=== PATIENT | male | born 1985 | race Caucasian/White ===

== ENCOUNTER 2021-04-15 12:16 | Emergency (ER) | payer OTHER, SELFPAY ==
[2021-04-15 12:26] VITALS: BP 130/66; PULSE 84; RESP 18; TEMP 36.4; O2SAT 99
--- NOTE | 2021-04-15 12:26 | ED.MALEGU ---
HPI - Male Genitourinary General Chief complaint: Urogenital-Male Stated complaint: POS UTI Time Seen by Provider: 04/15/21 12:26 Source: patient and RN notes reviewed Mode of arrival: ambulatory Limitations: no limitations History of Present Illness HPI Narrative: 35-year-old male presents to the [facility] with complaints of 5 days of urinary pain and burning. Denies chest pain or abdominal pain. No nausea vomiting or diarrhea. Denies any chance of an STD. States when he was in college he had a UTI. Related Data Allergies Allergy/AdvReac Type Severity Reaction Status Date / Time No Known Allergies Allergy Unverified 06/16/16 10:43 Review of Systems Review of Systems: All systems reviewed & are unremarkable except as noted in HPI and below Constitutional: Constitutional: Reports no additional constitutional complaints Eyes: Eyes: Reports no additional eye complaints ENT: Reports system reviewed and no additional complaints, except as documented Cardiovascular: Cardiovascular: Reports no additional cardiovascular complaints Respiratory: Respiratory: Reports no additional respiratory complaints and Denies dyspnea on exertion Gastrointestinal: Gastrointestinal: Reports no additional gastrointestinal complaints Genitourinary: Genitourinary: Reports as per HPI, Reports dysuria, Denies flank pain, Denies testicular mass, Denies testicular pain and Denies urinary frequency Musculoskeletal: Musculoskeletal: Reports no additional musculoskeletal complaints and Denies back pain Integumentary/Breasts: Skin/Breast: Reports system reviewed and no additional complaints, except as docu Neurologic: Reports system reviewed and no additional complaints, except as documented Psychiatric: Psychiatric: Reports no additional psychiatric complaints Allergic/Immunologic: Allergic/Immunologic: Reports no additional allergic/immunologic complaints PMFSH Comments At the time of my signature, I reviewed and agree with the nursing past medical, surgical, social, and family history. There is no relevant family history pertinent to the patient complaint. Exam Const: General: cooperative, healthy appearing, no acute distress, well developed and alert Nutritional Appearance: average body habitus Orientation/consciousness: patient oriented x3 Limitations: no limitations HENMT: Head: normal to inspection Eyes: General: appearance normal, both eyes and all related structures Neck: Neck: normal visual inspection, full ROM, no lymphadenopathy, no meningeal signs and trachea midline Chest: Chest palpation & inspection: normal inspection of the chest Resp: Effort & Inspection: normal respiratory effort and able to speak in complete sentences Auscultation: clear to auscultation bilaterally Cardio: Rate: regular rate Rhythm: regular rhythm GI: Inspection: normal to inspection GI Palp: No abdominal tenderness Auscultation: normal bowel sounds Rectal Exam: deferred : General: Yes no CVA tenderness and Yes deferred Back/Spine/Pelvis: Back: no CVA tenderness Skin: General skin exam: normal color and no rashes or lesions noted Neuro: General: patient oriented x3 and gait normal Cognition (Neuro): normal cognition Gait exam (Neuro): Normal gait present Extrem: General: normal to inspection, full ROM and capillary refill normal Psych: Appearance: grossly normal and well kempt Mental Status: mental status grossly normal Speech and movement: Normal speech and movement present Affect: normal affect Attitude: cooperative Thought process: Normal thought process present Course Course Emergency Course: Discharge instructions reviewed with patient, as well as provided in writing per nursing staff. The instructions also include specific and strict return/GO TO THE ER as well as f/u information. All questions have been answered, and the patient deny any further questions with discharge and discharge plan. Vital Signs Vital signs: Kay
== END 2021-04-15 12:50 | disposition home or self-care (01) ==
PROVIDERS: Emergency Provider Nurse Practitioner
DX: N30.00 Acute cystitis without hematuria (principal)
CPT/HCPCS: 81003; 87077; 87086; 87088; 87186; 99203; G0463

== ENCOUNTER 2022-03-08 22:36 | Emergency (ER) | payer BC, SELFPAY ==
--- NOTE | ~2022-03-08 | CT_ITS ---
EXAMINATION: CT abdomen pelvis wo con DATE: 03/09/2022 00:25 INDICATION: Abdominal pain and dysuria TECHNIQUE: Computed tomography (CT) of the abdomen and pelvis was performed without intravenous contr ast. The dose-length product (DLP) was 473.87 mGy-cm. Automated exposure control and iterative recons truction technique were employed. COMPARISON: None FINDINGS: The lung bases are clear. The heart size is normal. The liver, spleen, pancreas, and adrena l glands are normal. The gallbladder is contracted but appears normal. The left kidney is absent or s everely atrophic. There is a 2 mm nonobstructing stone of the right kidney. There is an 8 mm hemorrha gic cyst of the right kidney lower pole. The appendix is normal. No pathologically enlarged abdominal or pelvic lymph nodes are identified. There is no free intraperitoneal gas or evidence of bowel obst ruction. There is a 2.3 x 1.7 cm soft tissue density of the right pelvis of unclear etiology given th e absence of intravenous contrast. Finding could relate to the seminal vesicles or possibly reflect a lymphangioma, peritoneal inclusion cyst, or seroma. IMPRESSION: 1. No CT correlate for the patient's symptoms. Reviewed, dictated and finalized at location A.
[2022-03-08 22:38] VITALS: BP 131/68; PULSE 77; RESP 18; TEMP 36.2; O2SAT 97
--- NOTE | 2022-03-08 23:36 | ED.MALEGU ---
HPI - Male Genitourinary General Chief complaint: Urogenital-Male Stated complaint: abdominal pain Time Seen by Provider: 03/08/22 23:21 Source: patient Mode of arrival: ambulatory Limitations: no limitations History of Present Illness HPI Narrative: This is a 36 year old male that presents to the ER for dysuria noted today. Patient is about 2 weeks s/p vasectomy with Dr. Mejia. Reports today he started to note dysuria and urethral pain. He was started on Ciprofloxacin by urology. Reports he took Ibuprofen with little relief. His pain worsened which prompted him to be seen. Denies fever, vomiting, or testicular pain or swelling. Related Data Allergies Allergy/AdvReac Type Severity Reaction Status Date / Time No Known Allergies Allergy Unverified 03/08/22 22:42 Review of Systems Review of Systems: CONSTITUTIONAL: Denies fever GASTROINTESTINAL: Denies abdominal pain, nausea, vomiting GENITOURINARY: Reports dysuria. Denies hematuria. All systems reviewed & are unremarkable except as noted in HPI and below PMFSH Past Medical History Medical History (Updated 03/09/22 @ 02:39 by Milly Arroyo PA-C) No active medical problems Social History Social History (Updated 03/08/22 @ 23:41 by Milly Arroyo PA-C) Substance use: never Exam Narrative: GENERAL: Well-appearing, well-nourished, and in no acute distress. HEAD: Normocephalic, atraumatic. EYES: EOMI. CHEST: Clear to auscultation. No respiratory distress. No wheezes rales or rhonchi HEART: Regular rate and rhythm. No murmur heard. Normal peripheral pulses. ABDOMEN: Soft, nontender, nondistended, normal active bowel sounds. No CVA tenderness EXTREMITIES: Normal range of motion. No edema. SKIN: Warm, dry, no rash. NEURO: No focal deficits. Alert and oriented x3. PSYCH: Normal mood and affect Course Vital Signs Vital signs: Vital Signs Temperature 97.2 F L 03/08/22 22:38 Pulse Rate 77 03/08/22 22:38 Respiratory Rate 18 03/08/22 22:38 Blood Pressure 131/68 03/08/22 22:38 Pulse Oximetry 97 03/08/22 22:38 Oxygen Delivery Room Air 03/08/22 22:38 Temperature 97.2 F L 03/08/22 22:38 Pulse Rate 51 L 03/09/22 02:47 Respiratory Rate 18 03/09/22 02:47 Blood Pressure 113/81 03/09/22 02:47 Pulse Oximetry 100 03/09/22 02:47 Oxygen Delivery Room Air 03/08/22 22:38 MDM - Male Genitourinary MDM Narrative Medical decision making narrative: Patient presents to the emergency department for dysuria noted after vasectomy couple of weeks ago. Patient is afebrile and nontoxic-appearing. Vitals are stable. CBC with mild leukocytosis to 10.4. Metabolic panel with normal-appearing kidney function. UA is nitrate positive with 3-5 red blood cells. This will be sent for a culture. He reports no concern for STDs. CT scan of the abdomen and pelvis shows equivocal cystitis. No acute intra-abdominal or intrapelvic abnormality. Solitary right kidney with a punctate nonobstructing stone. Normal appendix. Patient was updated on case findings. He is stable and felt appropriate for further outpatient evaluation. He is to follow-up with his urologist. He is to continue antibiotics started by his urologist. He was given warnings to return to the ER Lab Data Attestation: I reviewed the patient's lab results. Result diagrams: 03/08/22 23:33 03/08/22 23:33 Labs: Lab Results 03/08/22 03/08/22 03/08/22 Range/Units 23:33 23:33 23:39 WBC 10.4 H (4.5-10.0) K/mm3 RBC 4.89 (4.6-6.20) M/mm3 Hgb 14.6 (14.0-18.0) g/dL Hct 42.8 (42.0-52.0) % MCV 87.5 (80-100) fl MCH 29.9 (26-34) pg MCHC 34.1 (32-36) g/dl RDW 12.0 (11.5-14.5) % Plt Count 239 (150-375) k/mm3 MPV 9.4 (7.4-10.4) fl Immature Gran % (Auto) 0.2 (0-0.5) % Neut % (Auto) 67.4 (45.5-73.1) % Lymph % (Auto) 19.6 (18.3-44.2) % Riley % (Auto) 11.3 H (2.6-8.5) % Eos % (Auto) 1.0 (0-
[2022-03-08 23:39] LABS: Basophils Absolute Auto 0.1 K/mm3 (0.0-0.1); Basophils Percent Auto 0.5 % (0.2-1.2); Eosinophils Absolute Auto 0.1 K/mm3 (0-0.3); Hematocrit 42.8 % (42.0-52.0); Hemoglobin 14.6 g/dL (14.0-18.0); Immature Granulocyte Absolute 0.02 K/mm3 (0.00-0.031); Immature Granulocyte Percent A 0.2 % (0-0.5); Lymphocytes Absolute Auto 2.04 K/mm3 (0.9-3.2); Lymphocytes Percent Auto 19.6 % (18.3-44.2); Mean Corpuscular HGB Conc 34.1 g/dl (32-36); Mean Corpuscular Hemoglobin 29.9 pg (26-34); Mean Corpuscular Volume 87.5 fl (80-100); Mean Platelet Volume 9.4 fl (7.4-10.4); Monocytes Absolute Auto 1.2 K/mm3 (0.1-0.6); Monocytes Percent Auto 11.3 % (2.6-8.5); Neutrophils Percent Auto 67.4 % (45.5-73.1); Platelet Count Result 239 k/mm3 (150-375); Red Blood Count 4.89 M/mm3 (4.6-6.20); White Blood Count 10.4 K/mm3 (4.5-10.0)
[2022-03-08 23:48] LABS: Appearance Urine Clear (Clear); Bilirubin Urine 1+ (Negative); Color Urine Yellow (Yellow); Glucose Urine UA Trace mg/dL (Negative); Ketones Urine Trace mg/dL (Negative); Leukocyte Esterase Ur Negative LEU/UL (Negative); Nitrate Urine Positive (Negative); Protein Urine Negative (Negative); Specific Grav Ur 1.025 (1.001-1.035)
[2022-03-08 23:50] LABS: Alanine Aminotransferase 23 U/L (6-50); Albumin Level 4.7 g/dL (3.5-5.1); Alkaline Phosphatase 74 U/L (38-126); Anion Gap 8 mmol/L (8-16); Aspartate Amino Transferase 26 U/L (17-59); Bilirubin,Total 0.4 mg/dL (0.2-1.3); Blood Urea Nitrogen 20 mg/dL (9-20); Calcium 9.2 mg/dL (8.4-10.2); Carbon Dioxide 28 mmol/L (22-30); Chloride 104 mmol/L (98-107); Estimated CRCL calculation 92 ml/min; Estimated Glomerular Filt Rate > 60; Glucose 97 mg/dL (65-110); Lipase 124 U/L (23-300); Potassium 3.5 mmol/L (3.4-5.0); Sodium 140 mmol/L (137-145)
[2022-03-08 23:54] LABS: Amorphous Sediment Urine Few; Bacteria Urine Trace /hpf; Squamous Epithelial Cell Urine Rare /hpf (Few); WBC Urine 0-3 /hpf
[2022-03-08 23:55] LABS: Add Urine Microscopic? YES; Blood Urine Trace-Intact (Negative)
[2022-03-09] MEDS: ONDANSETRON INJ 4 MG/2 ML VIAL IV PUSH (01:54)
[2022-03-09] MEDS: MORPHINE SULFATE (*CRX) 2 MG/ML INJ IV PUSH (01:55)
[2022-03-09 01:57] VITALS: BP 120/84; PULSE 71; RESP 18; O2SAT 100
[2022-03-09] MEDS: PHENAZOPYRIDINE HCL 100 MG TABLET 200 MG PO (02:20)
[2022-03-09 02:47] VITALS: BP 113/81; PULSE 51; RESP 18; O2SAT 100
--- NOTE | 2022-03-09 17:37 | ED.MALEGU ---
HPI - Male Genitourinary General Chief complaint: Urogenital-Male Stated complaint: abdominal pain Time Seen by Provider: 03/08/22 23:21 Source: patient Mode of arrival: ambulatory Limitations: no limitations History of Present Illness HPI Narrative: This is a 36-year-old male Related Data Allergies Allergy/AdvReac Type Severity Reaction Status Date / Time No Known Allergies Allergy Unverified 03/08/22 22:42 [facility] Past Medical History Medical History (Updated 03/09/22 @ 02:39 by Milly Arroyo PA-C) No active medical problems Social History Social History (Updated 03/08/22 @ 23:41 by Milly Arroyo PA-C) Substance use: never Course Vital Signs Vital signs: Vital Signs Temperature 97.2 F L 03/08/22 22:38 Pulse Rate 77 03/08/22 22:38 Respiratory Rate 18 03/08/22 22:38 Blood Pressure 131/68 03/08/22 22:38 Pulse Oximetry 97 03/08/22 22:38 Oxygen Delivery Room Air 03/08/22 22:38 Temperature 97.2 F L 03/08/22 22:38 Pulse Rate 51 L 03/09/22 02:47 Respiratory Rate 18 03/09/22 02:47 Blood Pressure 113/81 03/09/22 02:47 Pulse Oximetry 100 03/09/22 02:47 Oxygen Delivery Room Air 03/08/22 22:38 MDM - Male Genitourinary Lab Data Result diagrams: 03/08/22 23:33 03/08/22 23:33 Labs: Lab Results 03/08/22 03/08/22 03/08/22 Range/Units 23:33 23:33 23:39 WBC 10.4 H (4.5-10.0) K/mm3 RBC 4.89 (4.6-6.20) M/mm3 Hgb 14.6 (14.0-18.0) g/dL Hct 42.8 (42.0-52.0) % MCV 87.5 (80-100) fl MCH 29.9 (26-34) pg MCHC 34.1 (32-36) g/dl RDW 12.0 (11.5-14.5) % Plt Count 239 (150-375) k/mm3 MPV 9.4 (7.4-10.4) fl Immature Gran % (Auto) 0.2 (0-0.5) % Neut % (Auto) 67.4 (45.5-73.1) % Lymph % (Auto) 19.6 (18.3-44.2) % Elbert % (Auto) 11.3 H (2.6-8.5) % Eos % (Auto) 1.0 (0-4.4) % Baso % (Auto) 0.5 (0.2-1.2) % Lymph # (Auto) 2.04 (0.9-3.2) K/mm3 Elbert # (Auto) 1.2 H (0.1-0.6) K/mm3 Eos # (Auto) 0.1 (0-0.3) K/mm3 Baso # (Auto) 0.1 (0.0-0.1) K/mm3 Abs Immat Gran (auto) 0.02 (0.00-0.031) K/mm3 Absolute Neuts (auto) 7.0 H (1.3-6.7) K/mm3 Absolute Nucleated RBC 0.0 (0.0-0.012) K/mm3 Nucleated RBC % 0.0 (0.0-0.2) % Sodium 140 (137-145) mmol/L Potassium 3.5 (3.4-5.0) mmol/L Chloride 104 (98-107) mmol/L Carbon Dioxide 28 (22-30) mmol/L Anion Gap 8 (8-16) mmol/L BUN 20 (9-20) mg/dL Creatinine 1.20 (0.7-1.3) mg/dL Estim Creat Clear Calc 92 ml/min Estimated GFR > 60 (59 - ) Glucose 97 (65-110) mg/dL Calcium 9.2 (8.4-10.2) mg/dL Total Bilirubin 0.4 (0.2-1.3) mg/dL AST 26 (17-59) U/L ALT 23 (6-50) U/L Alkaline Phosphatase 74 (38-126) U/L Total Protein 8.0 (6.3-8.2) g/dL Albumin 4.7 (3.5-5.1) g/dL Lipase 124 (23-300) U/L Urine Color Yellow (Yellow) Urine Appearance Clear (Clear) Urine pH 6.0 (5.0-9.0) Ur Specific Rye 1.025 (1.001-1.035) Urine Protein Negative (Negative) mg/dL Urine Glucose (UA) Trace H (Negative) mg/dL Urine Ketones Trace (Negative) mg/dL Ur Blood (Man) Trace-intact (Negative) Urine Nitrate Positive H (Negative) Urine Bilirubin 1+ H (Negative) Urine Urobilinogen 1.0 (<2.0) mg/dL Leukocyte Esterase Rfl Negative (Negative) RO/UL Urine RBC 3-5 H (0-2) /hpf Urine WBC 0-3 /hpf Ur Squamous Epith Cells Rare (Few) /hpf Amorphous Sediment Few H (None) Urine Bacteria Trace /hpf Urine Characteristics Clear Discharge Plan Discharge Clinical Impression: Solitary right kidney Urinary tract infection Qualifiers: Urinary tract infection type: acute cystitis Hematuria presence: without hematuria Qualified Code(s): N30.00 - Acute cystitis without hematuria Patient Disposition: Home, Self-Ca
== END 2022-03-09 02:48 | disposition home or self-care (01) ==
PROVIDERS: Physician Assistant; Emergency Provider General Practice
DX: N30.00 Acute cystitis without hematuria (principal); N20.0 Calculus of kidney
CPT/HCPCS: 36415; 74176; 80053; 81001; 83690; 85025; 87086; 96365; 96374; 96375; 99284; A9270; J0131; J2270; J2405

== ENCOUNTER 2022-03-09 16:01 | Emergency (ER) | payer BC, SELFPAY ==
--- NOTE | ~2022-03-09 | US_ITS ---
EXAMINATION: US scrotum doppler DATE: 03/09/2022 18:37 INDICATION: Testicular pain and swelling, rule out torsion. Cystectomy 2 weeks ago. TECHNIQUE: Grayscale and Doppler ultrasound images of the testes were obtained. COMPARISON: None. FINDINGS: The right testis measures 3.1 x 4.6 x 3.1. The left testis measures 3.6 x 2.6 x 3.9. There is normal vascular flow to both testes. 3 mm intratesticular cyst on the right. Left testicular paren chyma is heterogeneous with an ill-defined 7 mm area of hypoechogenicity. The right epididymis is nor mal with normal vascular flow. The left epididymis is normal with normal vascular flow. 3 mm left epi didymal cyst. Small left hydrocele. Small right varicocele. IMPRESSION: 1. No sonographic evidence of torsion. 2. Somewhat heterogeneous appearing left testicular parenchyma with a 7 mm area of hypoechogenicity. Intratesticular lesion such as a mass or infection is not excluded. Recommend urology referral and co ntinued sonographic follow-up as clinically indicated. Reviewed, dictated and finalized at location K. IMPRESSION: 1. No sonographic evidence of torsion. 2. Somewhat heterogeneous appearing left testicular parenchyma with a 7 mm area of hypoechogenicity. Intratesticular lesion such as a mass or infection is not excluded. Recommend urology referral and continued sonographic follow-up as cl inically indicated.
[2022-03-09 16:06] VITALS: BP 145/96; PULSE 86; RESP 18; TEMP 36.6; O2SAT 100
--- NOTE | 2022-03-09 17:38 | ED.MALEGU ---
HPI - Male Genitourinary General Chief complaint: Urogenital-Male Stated complaint: groin pain and swelling Time Seen by Provider: 03/09/22 17:29 Source: patient Mode of arrival: ambulatory Limitations: no limitations History of Present Illness HPI Narrative: This is a 36-year-old male that presents to the emergency department for testicular pain and swelling. Noted since this morning. He recently had a vasectomy with Dr. Mejia. He was seen in the ED here last night for dysuria. Started on ciprofloxacin. Reports this morning his pain worsened and he also noted some swelling in his testicles. He called urology and was prompted to be seen in the ER for an ultrasound. Denies fever or vomiting. Related Data Allergies Allergy/AdvReac Type Severity Reaction Status Date / Time No Known Allergies Allergy Unverified 03/08/22 22:42 Review of Systems Review of Systems: CONSTITUTIONAL: Denies fever GASTROINTESTINAL: Denies abdominal pain, nausea, vomiting GENITOURINARY: Reports dysuria All systems reviewed & are unremarkable except as noted in HPI and below PMFSH Past Medical History Medical History (Updated 03/09/22 @ 19:54 by Milly Arroyo PA-C) No active medical problems Social History Social History (Updated 03/08/22 @ 23:41 by Milly Arroyo PA-C) Substance use: never Exam Narrative: GENERAL: Well-appearing, well-nourished, and in no acute distress. HEAD: Normocephalic, atraumatic. EYES: PERRLA and EOMI. ENT: Nares clear, no rhinorrhea or epistaxis. Mucous membranes moist. Oropharynx without tonsillar hypertrophy exudate or other lesions. Bilateral TMs pearly engle non-bulging NECK: Supple. No adenopathy or masses. No carotid bruits or JVD CHEST: Clear to auscultation. No respiratory distress. No wheezes rales or rhonchi HEART: Regular rate and rhythm. No murmur heard. Normal peripheral pulses. ABDOMEN: Soft, nontender, nondistended, normal active bowel sounds. EXTREMITIES: Normal range of motion. No edema. SKIN: Warm, dry, no rash. NEURO: No focal deficits. Alert and oriented x3. PSYCH: Normal mood and affect MALE GENITAL: Left testicular swelling, tender to palpation. No erythema of the scrotum. Course Consultations Consultation #1: Spoke with Dr. Lassiter about patient and work-up. Recommends scrotal supporting underwear, anti-inflammatories, and continue antibiotics. Follow-up in clinic. Date: 03/09/22 Time: 19:51 Vital Signs Vital signs: Vital Signs Temperature 97.8 F 03/09/22 16:06 Pulse Rate 86 03/09/22 16:06 Respiratory Rate 18 03/09/22 16:06 Blood Pressure 145/96 H 03/09/22 16:06 Pulse Oximetry 100 03/09/22 16:06 Oxygen Delivery Room Air 03/09/22 16:06 Temperature 97.8 F 03/09/22 16:06 Pulse Rate 97 03/09/22 17:53 Respiratory Rate 21 H 03/09/22 17:53 Blood Pressure 131/70 03/09/22 17:53 Pulse Oximetry 100 03/09/22 17:53 Oxygen Delivery Room Air 03/09/22 16:06 MDM - Male Genitourinary MDM Narrative Medical decision making narrative: Patient presents to the emergency department for testicular pain and swelling. He is afebrile and nontoxic-appearing. His vitals are stable. CBC with leukocytosis to 14.6. Metabolic panel with mild hypokalemia. Patient given dose of potassium in the ED. Scrotal ultrasound shows normal vascular flow to the testes, heterogenous appearing left testicular parenchyma with 7 mm area of hypoechogenicity. Intratesticular lesion such as mass or infection is not excluded. Recommend urology referral and continued sonographic follow-up as indicated. Patient and family updated on case findings. Spoke with Dr. Lassiter about patient and work-up. Recommends scrotal supporting underwear, anti-inflammatories, and continue antibiotics. Follow-up in clinic. Patient is stable and felt appropriate for further outpatient evaluation. He was given warnings to return to the ER Lab Data Attestation: I reviewed the patient's lab results.
[2022-03-09] MEDS: ONDANSETRON INJ 4 MG/2 ML VIAL IV PUSH (17:48)
[2022-03-09] MEDS: MORPHINE SULFATE (*CRX) 4 MG/ML INJ IV PUSH (17:49)
[2022-03-09 17:53] VITALS: BP 131/70; PULSE 97; RESP 21; O2SAT 100
[2022-03-09 17:59] LABS: Basophils Percent Auto 0.3 % (0.2-1.2); Eosinophils Percent Auto 0.1 % (0-4.4); Hematocrit 42.7 % (42.0-52.0); Hemoglobin 14.6 g/dL (14.0-18.0); Immature Granulocyte Absolute 0.06 K/mm3 (0.00-0.031); Immature Granulocyte Percent A 0.4 % (0-0.5); Lymphocytes Absolute Auto 1.37 K/mm3 (0.9-3.2); Lymphocytes Percent Auto 9.4 % (18.3-44.2); Mean Corpuscular HGB Conc 34.2 g/dl (32-36); Mean Corpuscular Hemoglobin 29.7 pg (26-34); Mean Corpuscular Volume 86.8 fl (80-100); Mean Platelet Volume 9.4 fl (7.4-10.4); Monocytes Absolute Auto 1.2 K/mm3 (0.1-0.6); Monocytes Percent Auto 8.1 % (2.6-8.5); Neutrophils Absolute Auto 11.9 K/mm3 (1.3-6.7); Neutrophils Percent Auto 81.7 % (45.5-73.1); Platelet Count Result 266 k/mm3 (150-375); Red Blood Count 4.92 M/mm3 (4.6-6.20); White Blood Count 14.6 K/mm3 (4.5-10.0)
[2022-03-09 18:10] LABS: Anion Gap 11 mmol/L (8-16); Blood Urea Nitrogen 12 mg/dL (9-20); Calcium 8.9 mg/dL (8.4-10.2); Carbon Dioxide 19 mmol/L (22-30); Chloride 107 mmol/L (98-107); Estimated CRCL calculation 110 ml/min; Estimated Glomerular Filt Rate > 60; Glucose 107 mg/dL (65-110); Potassium 3.1 mmol/L (3.4-5.0); Sodium 137 mmol/L (137-145)
[2022-03-09] MEDS: KETOROLAC 15 MG/ML VIAL (*BKC) IV PUSH (19:56)
[2022-03-09] MEDS: POTASSIUM CHLORIDE 20 MEQ TABLET 40 MEQ PO (20:00)
[2022-03-09 20:02] VITALS: BP 123/80; PULSE 97; RESP 22; O2SAT 95
== END 2022-03-09 20:10 | disposition home or self-care (01) ==
PROVIDERS: Physician Assistant; Emergency Provider Emergency Medicine
DX: N30.00 Acute cystitis without hematuria (principal); E87.6 Hypokalemia; N43.3 Hydrocele, unspecified
CPT/HCPCS: 36415; 76870; 80048; 85025; 93976; 96374; 96375; 99284; A9270; J1885; J2270; J2405

== ENCOUNTER 2025-05-09 12:42 | Outpatient (CLI) | payer OTHER, SELFPAY ==
[2025-05-09 15:08] LABS: Hematocrit 45.0 % (42.0-52.0); Hemoglobin 15.1 g/dL (14.0-18.0); Immature Granulocyte Percent A 0.2 % (0-0.5); Lymphocytes Absolute Auto 1.93 K/mm3 (0.9-3.2); Mean Corpuscular HGB Conc 33.6 g/dl (32-36); Mean Corpuscular Hemoglobin 29.6 pg (26-34); Mean Corpuscular Volume 88.2 fl (80-100); Nucleated Red Blood Cells Absolute Auto 0.000 K/mm3 (0.0-0.012); Nucleated Red Blood Cells Perc 0.0 % (0.0-0.2); Platelet Count Result 250 k/mm3 (150-375); Red Blood Count 5.10 M/mm3 (4.6-6.20); White Blood Count 5.1 K/mm3 (4.5-10.0)
[2025-05-09 15:21] LABS: Alanine Aminotransferase 19 U/L (6-50); Albumin Level 4.6 g/dL (3.5-5.1); Alkaline Phosphatase 61 U/L (38-126); Anion Gap 7 mmol/L (4-12); Aspartate Amino Transferase 41 U/L (17-59); Bilirubin,Total 0.6 mg/dL (0.2-1.3); Blood Urea Nitrogen 13 mg/dL (9-20); CRP < 0.5 mg/dL (<1.0); Calcium 9.4 mg/dL (8.4-10.2); Carbon Dioxide 28 mmol/L (22-30); Chloride 102 mmol/L (98-107); Creatine Kinase 90 U/L (55-170); Estimated Glomerular Filt Rate > 60; Glucose 82 mg/dL (65-110); Potassium 3.8 mmol/L (3.4-5.0); Sodium 137 mmol/L (137-145); Total Protein 8.2 g/dL (6.3-8.2)
[2025-05-09 15:54] LABS: Ferritin 56.10 ng/mL (17.9-464); Thyroid Stimulating Hormone 1.950 uIU/mL (0.465-4.680)
[2025-05-10 11:09] LABS: Anti-CCP Ab, IgG/IgA 8 units (0-19)
[2025-05-10 13:08] LABS: ANA by IFA Rfx Titer/Pattern Negative (.)
== END 2025-05-09 12:43 | disposition home or self-care (01) ==
LOC: ANHGOSHLAB 12:42
PROVIDERS: PCP Internal Medicine; Visit Provider Internal Medicine
DX: M79.10 Myalgia, unspecified site (principal); R53.83 Other fatigue; M25.50 Pain in unspecified joint; L03.818 Cellulitis of other sites
CPT/HCPCS: 36415; 80053; 82550; 82728; 84443; 85025; 85652; 86038; 86140; 86200; 86225; 86235; 86430

== ENCOUNTER 2025-06-08 14:56 | Outpatient (CLI) | payer OTHER, SELFPAY ==
--- NOTE | ~2025-06-08 | XR_ITS ---
EXAMINATION: XR chest 2V 06/08/2025 15:26 INDICATION: Chronic fatigue PROCEDURE: 2 view chest COMPARISON: 10/18/2013 FINDINGS: The lungs are clear. The cardiomediastinal silhouette is within normal limits. There are no pleural effusions. There is no pneumothorax suspected. IMPRESSION: 1: NO ACUTE CARDIOPULMONARY DISEASE. Reviewed, dictated and finalized at location O.
== END 2025-06-08 14:57 | disposition home or self-care (01) ==
PROVIDERS: PCP Internal Medicine; Visit Provider Internal Medicine
DX: R59.0 Localized enlarged lymph nodes (principal); R53.83 Other fatigue
CPT/HCPCS: 71046

== ENCOUNTER 2025-08-22 10:51 | Outpatient (CLI) | payer OTHER, SELFPAY ==
--- NOTE | ~2025-08-22 | CT_ITS ---
EXAMINATION:CT diagnostic chest w con DATE: 08/22/2025 11:18 INDICATION: 39-year-old male with localized enlargement of lymph node, as per history. Lymph nodes reported in the inguinal, axillary, cervical regions. No history of pain. TECHNIQUE: Computed tomography (CT) of the chest was performed 75 cc of Omnipaque 350. intravenous contrast. Automated exposure control and iterative reconstruction technique were employed. The dose-length product (DLP) was 242.78 mGy-cm. COMPARISON: Chest x-ray dated 06/08/2025. FINDINGS: No evidence of supraclavicular mass is noted. Thyroid gland is normal in appearance. No evidence of axillary adenopathy is noted on either side. No acute focal pulmonary lesions are seen. No evidence of consolidation are atelectasis is noted. No hilar or mediastinal lymphadenopathy is noted. No evidence of pleural effusion or pericardial effusion is seen. Partially examined upper abdomen is nonvisualization of the left kidney. No free fluid in the upper abdomen. No focal lesions of thoracic spine and sternum and ribs are seen. IMPRESSION: 1. No focal cardiopulmonary abnormalities are seen. 2. No lymphadenopathy or effusion in the chest. No evidence of axillary adenopathy. 3. No focal bone changes of thoracic spine sternum and ribs are seen. 4. Partially examined upper abdomen shows absent left kidney Reviewed, dictated and finalized at location T. ER SINGLE IMPRESSION: 1. No focal cardiopulmonary abnormalities are seen. 2. No lymphadenopathy or effusion in the chest. No evidence of axillary adenopa thy. 3. No focal bone changes of thoracic spine sternum and ribs are seen. 4. Partially examined upper abdomen shows absent left kidney
== END 2025-08-22 10:52 | disposition home or self-care (01) ==
LOC: MICIMG 10:52
PROVIDERS: PCP Internal Medicine; Visit Provider Internal Medicine
DX: R59.0 Localized enlarged lymph nodes (principal); R68.89 Other general symptoms and signs
CPT/HCPCS: 71260; Q9967